=== PATIENT | female | born 1985 | race Caucasian/White ===

== ENCOUNTER → 2019-06-28 | Outpatient (CLI) | payer BC ==
--- NOTE | 2019-06-28 14:58 | US ---
EXAMINATION TYPE: US pelvic complete DATE OF EXAM: 06/28/2019 COMPARISON: NONE CLINICAL HISTORY: N92.0 Menorrhagia;R10.2 pelvic pain. TECHNIQUE: Transabdominal (TA). Date of LMP: 06/18/2019 and still on EXAM MEASUREMENTS: Uterus: 10.5 x 3.6 x 5.3 cm Endometrial Stripe: 1.1 cm Right Ovary: 2.8 x 1.7 x 2.8 cm Left Ovary: 2.7 x 2.1 x 3.1 cm 1. Uterus: Anteverted wnl 2. Endometrium: measures 1.1 cm 3. Right Ovary: wnl 4. Left Ovary: wnl 5. Bilateral Adnexa: wnl 6. Posterior cul-de-sac: no free fluid IMPRESSION: Unremarkable pelvic ultrasound. Endometrium is within normal limits of thickness.
== END | disposition home or self-care (01) ==
LOC: RADUSWWP 13:30
PROVIDERS: ATTEND Obstetrics & Gynecology
DX: R10.2 Pelvic and perineal pain (principal); N92.0 Excessive and frequent menstruation with regular cycle
CPT/HCPCS: 76856

== ENCOUNTER → 2019-07-28 | Outpatient (CLI) | payer BC ==
[2019-07-28 08:59] LABS: African American GFR (CKD) >90 (>60 ml/min/1.73 sqM); Anion Gap 10 mmol/L; Blood Urea Nitrogen 11 mg/dL (7-17); Carbon Dioxide 24 mmol/L (22-30); Chloride 107 mmol/L (98-107); Glucose 93 mg/dL (74-99); Non-African American GFR(CKD) >90 (>60 ml/min/1.73 sqM); Potassium 4.6 mmol/L (3.5-5.1); Sodium 141 mmol/L (137-145)
[2019-07-28 09:10] LABS: Basophils # (A) 0.1 k/uL (0-0.2); Basophils % (A) 1 %; Eosinophils # (A) 0.1 k/uL (0-0.7); Eosinophils % (A) 2 %; HCT 35.5 % (34.0-46.0); HGB 11.8 gm/dL (11.4-16.0); Lymphocytes # (A) 1.5 k/uL (1.0-4.8); Lymphocytes % (A) 33 %; MCH 27.6 pg (25.0-35.0); MCHC 33.2 g/dL (31.0-37.0); MCV 83.2 fL (80.0-100.0); Monocytes # (A) 0.3 k/uL (0-1.0); Monocytes % (A) 7 %; Neutrophils # (A) 2.5 k/uL (1.3-7.7); Neutrophils % (A) 53 %; Platelet Count 423 k/uL (150-450); RBC 4.27 m/uL (3.80-5.40); RDW 13.6 % (11.5-15.5); WBC 4.7 k/uL (3.8-10.6)
[2019-07-28 09:16] LABS: T4, Free (Free Thyroxine) 1.02 ng/dL (0.78-2.19)
== END | disposition home or self-care (01) ==
LOC: LABPAT 08:19
PROVIDERS: ATTEND Obstetrics & Gynecology
DX: Z01.812 Encounter for preprocedural laboratory examination (principal)
CPT/HCPCS: 36415; 80048; 84439; 84443; 85025

== ENCOUNTER → 2024-03-19 | Outpatient (CLI) | payer MEDICAID, BC ==
--- NOTE | 2024-03-19 13:07 | CA ---
Exercise Stress Test Report Name: Estrellita Kim Exam Date: 03/19/2024 10:45 Exam Location: [place] Stress Ht (in): 65 Wt (lb): 198 BSA: 1.97 Ordering Phys: Almas Hall MD Referring Phys: EUGENIA,, Technologist: Uche Segura Age: 38 Gender: F : 1985 Procedure CPT: Indications: Z91.89 OTHER SPECIFIED PERSONAL RISK FACTORS NOT ELSEWHERE C ICD-10 Codes: Patient History: HYPERCHOLESTEROLEMIA, FAMILY HX OF HEART DISEASE Medications: WEGOVY, TYLENOL NEEDED Meds past 24 hrs: Pretest Chest Pain: STRESS TEST Hayes Protocol Exercise Duration (min:sec): 09:[address] Depressions (mm): Angina Score: Jesus Score: Resting HR (bpm): 97 Peak HR (bpm): 188 Resting BP (mmHg): 128 / 96 Peak BP (mmHg): 201 / 96 MPHR: 184 Target HR: 156 % MPHR: 102 METS: 10.5 Total Dose: Peak Dose: Atropine: Double Product: 00036 BP Response: Stress Termination: MAX EXERTION/TARGET HR Stress Symptoms: NO SYMPTOMS Stress Summary: ECG ANALYSIS Resting ECG: Normal sinus rhythm Stress ECG: No significant ST or T wave changes that are diagnostic for ischemia by ST segment analysis. There were no sustained arrhythmias or ectopic beats noted during the stress test CONCLUSIONS Good exercise tolerance for age achieving 10.5 METS Normal hemodynamic and clinical response to treadmill exercise Nonischemic ECG response to treadmill exercise Overall normal treadmill stress Dr Roger Chaudhry (Electronically Signed) Final Date: 19 March 2024 13:06
--- NOTE | 2024-03-19 18:03 | US ---
EXAMINATION TYPE: US carotid duplex BILAT DATE OF EXAM: 03/19/2024 COMPARISON: NONE CLINICAL INDICATION: Female, 38 years old with history of Z91.89 PERSONAL RISK FACTORS; TECHNIQUE: Grayscale, color Doppler and spectral Doppler evaluation of the bilateral carotid systems and vertebral arteries.Indirect Doppler criteria was utilized. FINDINGS: EXAM MEASUREMENTS: RIGHT: Peak Systolic Velocity (PSV) cm/sec ----- Right CCA: 107.0 ----- Right ICA: 101.3 ----- Right ECA: 96.0 ICA/CCA ratio: 0.9 RIGHT: End Diastole cm/sec ----- Right CCA: 41.6 ----- Right ICA: 37.8 ----- Right ECA: 23.3 LEFT: Peak Systolic Velocity (PSV) cm/sec ----- Left CCA: 104.3 ----- Left ICA: 103.0 ----- Left ECA: 105.6 ICA/CCA ratio: 1.0 LEFT: End Diastole cm/sec ----- Left CCA: 46.0 ----- Left ICA: 61.6 ----- Left ECA: 28.0 VERTEBRALS (direction of flow): Right Vertebral: Antegrade Left Vertebral: Antegrade Rhythm: Normal INTERACTIVE MEDIA SPECIALIST NOTES: no plaque or elevated velocities seen IMPRESSION: 1. No suspicious changes to suggest carotid artery stenosis based on velocities. Criteria for Assigning % of Stenosis / Diameter reduction (Estimation based on the indirect measurements of the internal carotid artery velocities (ICA PSV). 1. Normal (no stenosis)=ICA PSV < 125 cm/s: ratio < 2.0: ICA EDV<40 cm/s. 2. Less than 50% stenosis=ICA PSV < 125 cm/s: ratio < 2.0: ICA EDV<40 cm/s. 3. 50 to 69% stenosis=ICA PSV of 125 to 230 cm/s: ration 2.0 ? 4.0: ICA EDV 40-100 cm/s. 4. Greater than 70% stenosis to near occlusion= ICA PSV > 230 cm/s: ratio > 4.0: ICA EDV > 100 cm/s. 5. Near occlusion= ICA PSV velocities may be low or undetectable: variable ratio and ICA EDV. 6. Total occlusion=unable to detect flow. [facility], Workstation: [facility], 03/19/2024 6:01 PM
== END | disposition home or self-care (01) ==
LOC: RADUSWWP 09:11
PROVIDERS: ATTEND Family Medicine
DX: Z91.89 Other specified personal risk factors, not elsewhere classified
CPT/HCPCS: 93017; 93880